=== PATIENT | female | born 1980 | race Caucasian/White ===

== ENCOUNTER 2018-07-10 20:57 | Emergency (ER) | payer BC, OTHER ==
[~2018-07-10] VITALS: Ht 167.6 cm; Wt 85.7 kg
[~2018-07-10 20:57] MED LIST: CLIN-96 PO
[2018-07-10 21:08] VITALS: BP 147/83
== END 2018-07-10 21:35 | disposition home or self-care (01) ==
LOC: ER 20:57
DX: S90.511A Abrasion, right ankle, initial encounter (principal); S91.001A Unspecified open wound, right ankle, initial encounter; L03.115 Cellulitis of right lower limb; X58.XXXA Exposure to other specified factors, initial encounter; Y93.89 Activity, other specified; Y92.89 Other specified places as the place of occurrence of the external cause; Y99.8 Other external cause status
CPT/HCPCS: 99281